=== PATIENT | female | born 1985 ===

== ENCOUNTER 2023-12-25 12:46 | Outpatient (CLI) | payer OTHER, SELFPAY ==
--- NOTE | 2023-12-25 13:00 | US_ITS ---
Patient: SEDA AVELAR Facility:?[facility] Patient ID:?[id number] Site Patient ID:?[id number]. Site :?[id number] Study:?US-Pelvis TRANSABDOMINAL AND TRANSVAGINAL-12/25/2023 1:12:48 PM Ordering Physician:?FRED FAYE Final Report: INDICATION: Pelvic and perineal pain TECHNIQUE: Transabdominal and transvaginal scanning was performed. Transvaginal scanning was performed to optimally evaluate the endometrium and adnexa. Ovarian blood flow was evaluated with color-flow and pulsed Doppler. COMPARISON: None. FINDINGS: The uterus is borderline enlarged but normal in shape. The uterus measures 8.9 x 4.6 x 6.0 cm. No myometrial mass is evident. The endometrial stripe is normal in thickness at roughly 5 mm. An IUD is present in the uterine cavity and appears to be properly positioned. A simple 3.3 x 3.0 x 2.8 cm left ovarian cyst is demonstrated. The right ovary measures 3.7 x 2.7 x 1.3 cm and left 4.4 x 3.3 x 2.7 cm. Ovarian blood flow is demonstrated with color-flow and pulsed Doppler. No adnexal mass is evident. No free fluid is demonstrated. IMPRESSION: 1. Simple 3.3 cm left ovarian cyst. 2. Properly positioned IUD. 3. Borderline enlarged uterus. Dictated by Cholo Lees MD @ 12/26/2023 10:50:28 AM Signed by:?Cholo Lees MD @12/26/2023 10:50:28 AM (Electronic Signature)
== END 2023-12-25 12:47 | disposition home or self-care (01) ==
LOC: US 12:46
PROVIDERS: Visit Provider Obstetrics & Gynecology
DX: R10.2 Pelvic and perineal pain (principal); N83.202 Unspecified ovarian cyst, left side; N85.2 Hypertrophy of uterus
CPT/HCPCS: 76830; 76856; 93976

== ENCOUNTER 2024-03-04 09:06 | Outpatient (CLI) | payer OTHER, SELFPAY | END 2024-03-04 09:07 | disposition home or self-care (01) | PROVIDERS: Visit Provider Obstetrics & Gynecology | DX: Z01.419 Encounter for gynecological examination (general) (routine) without abnormal findings (principal); R53.83 Other fatigue; Z13.6 Encounter for screening for cardiovascular disorders; Z13.1 Encounter for screening for diabetes mellitus; Z86.39 Personal history of other endocrine, nutritional and metabolic disease | CPT/HCPCS: 80061; 84443 ==

== ENCOUNTER 2024-05-04 12:34 | Day surgery (SDC) | payer OTHER, SELFPAY ==
[2024-05-04] VITALS (7 sets, daily range): BP systolic 110–135; BP diastolic 59–88; PULSE 67–82; RESP 16; TEMP 36.4–36.7; O2SAT 98–100; BMI 22.4
[2024-05-04] MEDS: BUPIVACAINE 0.5 %/EPI 1:200K INJECTION (13:00)
--- NOTE | 2024-05-04 13:14 | PM.ORPRC ---
Procedure Note Date of procedure: 05/04/24 Procedure: Preop diagnosis: Right hand ring finger stenosing tenosynovitis Postop diagnosis: Right hand ring finger stenosing tenosynovitis Procedure: Right hand ring finger A1 [place] release Anesthesia: Local Surgeon: Mehdi Shelby MD assistant chief nursing officer: Mercedes Mackey PA-C EBL: 1 mL Complications: None Specimens: None Drains: None Preoperative antibiotics: None Indications: The patient has a history of right upper extremity ring finger painful catching and locking. Despite appropriate non operative management including flexor tendon sheath corticosteroid injections they continue to have symptoms. Operative intervention was recommended. The risks, benefits alternatives and expected outcomes were discussed in detail. These included but were not limited to: Infection, bleeding, injury to blood vessel or nerve, venous thromboembolism. All questions were answered to their satisfaction. The patient was placed supine on the operating room table. Local anesthesia was established with 0.5% Marcaine with epinephrine and 2% lidocaine with epinephrine. The hand was prepped and draped in usual sterile fashion. A transverse incision was made centered over the base of the ring finger in the distal palmar crease. Subcutaneous dissection was taken through the palmar fascia to the flexor tendons with the tenotomy scissors. The A1 [place] was released with the 15 blade and tenotomy scissors. Active flexion and extension of the finger shows no catching or locking, no bowstringing of the flexor tendons. The wound was closed with interrupted nylon sutures. A dry dressing was applied. Sponge and needle counts were correct x 2. The patient tolerated the procedure well, there were no apparent complications. They were sent to same day surgery in satisfactory condition. Plan: Use of the hand as tolerates. Discontinue the intraoperative dressing on postoperative day 3 and may get the wound wet as tolerates. Follow up in the office in 2 weeks for a wound check and suture removal.
[2024-05-04] MEDS: NEOMYCIN/BACITRACIN/POLYMYXIN B 1 APPLIC TOPICAL (13:15)
== END 2024-05-04 13:27 | disposition home or self-care (01) ==
LOC: OR 12:35
PROVIDERS: Visit Provider Orthopaedic Surgery
PROC: (CPT 26055; principal; 2024-05-04 12:30)
DX: M65.341 Trigger finger, right ring finger (principal); M65.841 Other synovitis and tenosynovitis, right hand
CPT/HCPCS: 26055; J2001; J3490

== ENCOUNTER 2025-05-04 11:50 | Outpatient (CLI) | payer OTHER, SELFPAY ==
[2025-05-06 08:35] LABS: HPV Source Cervical
[2025-05-10 07:50] LABS: Pap Test Digital Imaging Done
== END 2025-05-04 11:51 | disposition home or self-care (01) ==
PROVIDERS: Visit Provider Advanced Practice Midwife
DX: Z12.4 Encounter for screening for malignant neoplasm of cervix (principal); Z11.51 Encounter for screening for human papillomavirus (HPV)
CPT/HCPCS: 87624; 87625; 88141; 88142; 88175